=== PATIENT | female | born 1965 ===

== ENCOUNTER 2023-03-08 12:45 | Inpatient (IN) | payer OTHER ==
[~2023-03-08] VITALS: Ht 165.1 cm; Wt 68.0 kg
[2023-03-08] MEDS ORDERED: BENADRYL25 MG PO (14:43)
[2023-03-10 21:47] LABS: MEAN CELL VOLUME 93.6 fL (80.00-100.00); MEAN CORPUSCULAR HEMOGLOBIN 31.2 pg (27.00-32.0); MEAN CORPUSCULAR HGB CONC 33.3 g/dl (32.0-36.0); PLATELET COUNT 250 K/uL (150-450); RED BLOOD COUNT 4.16 M/uL (4.00-6.00); RED CELL DISTRIBUTION WIDTH 13.3 % (11.5-14.5)
[2023-03-10 22:07] LABS: CALCIUM 8.7 mg/dL (8.5-10.1); CREATININE SERUM 0.51 mg/dL (0.55-1.02); GFR 124.29; POTASSIUM 3.51 mEq/L (3.5-5.1)
[2023-03-11 05:12] LABS: HEMATOCRIT 39.5 % (36.0-45.00); HEMOGLOBIN 13.2 g/dL (12.0-15.00); MEAN CELL VOLUME 93.9 fL (80.00-100.00); MEAN CORPUSCULAR HEMOGLOBIN 31.4 pg (27.00-32.0); MEAN CORPUSCULAR HGB CONC 33.4 g/dl (32.0-36.0); PLATELET COUNT 259 K/uL (150-450); RED CELL DISTRIBUTION WIDTH 13.1 % (11.5-14.5)
[2023-03-11 05:32] LABS: CALCIUM 8.7 mg/dL (8.5-10.1); CREATININE SERUM 0.51 mg/dL (0.55-1.02); GFR 124.29; POTASSIUM 4.34 mEq/L (3.5-5.1)
== END 2023-03-11 12:42 | disposition home or self-care (01) | DRG 740 ==
LOC: O/R 03-10 07:09 → SURH 03-10 12:45 → OB/GYN 03-10 23:00
PROVIDERS: Obstetrics & Gynecology; Surgery; ADMIT Obstetrics & Gynecology Gynecologic Oncology; ATTEND Obstetrics & Gynecology Gynecologic Oncology
PROC: 0UT24ZZ Resection of Bilateral Ovaries, Percutaneous Endoscopic Approach (ICD-10-PCS; 2023-03-10)
PROC: 07BD4ZZ Excision of Aortic Lymphatic, Percutaneous Endoscopic Approach (ICD-10-PCS; 2023-03-10)
PROC: 07BC4ZZ Excision of Pelvis Lymphatic, Percutaneous Endoscopic Approach (ICD-10-PCS; 2023-03-10)
PROC: 0WQF0ZZ Repair Abdominal Wall, Open Approach (ICD-10-PCS; 2023-03-10)
PROC: 0WJF4ZZ Inspection of Abdominal Wall, Percutaneous Endoscopic Approach (ICD-10-PCS; 2023-03-10)
PROC: 0UT94ZZ Resection of Uterus, Percutaneous Endoscopic Approach (ICD-10-PCS; principal; 2023-03-10 20:00)
PROC: 0UT74ZZ Resection of Bilateral Fallopian Tubes, Percutaneous Endoscopic Approach (ICD-10-PCS; 2023-03-10 20:00)
DX: C54.1 Malignant neoplasm of endometrium (principal); K43.0 Incisional hernia with obstruction, without gangrene; D25.1 Intramural leiomyoma of uterus; N72 Inflammatory disease of cervix uteri; Z20.822 Contact with and (suspected) exposure to COVID-19